=== PATIENT | female | born 1985 | race Caucasian/White ===

== ENCOUNTER → 2023-05-10 10:06 | Outpatient (BNVA) | payer MEDICAID, SELFPAY | PROVIDERS: PCP Family Medicine; Visit Provider Family Medicine | DX: M79.7 Fibromyalgia (principal); M32.9 Systemic lupus erythematosus, unspecified; B35.3 Tinea pedis; K21.9 Gastro-esophageal reflux disease without esophagitis; F17.200 Nicotine dependence, unspecified, uncomplicated | CPT/HCPCS: 80053; 81000; 82306; 83036; 83735; 84443; 85025; 85651; 86038; 86141; 86200 ==

== ENCOUNTER → 2023-08-20 15:56 | Outpatient (BNVA) | payer MEDICAID, SELFPAY | PROVIDERS: PCP Family Medicine; Visit Provider Family Medicine | DX: Z01.818 Encounter for other preprocedural examination (principal) | CPT/HCPCS: 81000 ==

== ENCOUNTER 2023-09-09 14:27 | Outpatient (CLI) | payer MEDICAID, SELFPAY ==
--- NOTE | 2023-09-09 14:31 | XRR_ITS ---
PROCEDURE INFORMATION: Exam: XR Lumbosacral Spine Exam date and time: 09/09/2023 2:34 PM Age: 38 years old Clinical indication: Low back pain; Additional info: Worsening back pain, no red flags TECHNIQUE: Imaging protocol: Radiologic exam of the lumbosacral spine. Views: 2 or 3 views. COMPARISON: No relevant prior studies available. FINDINGS: Bones/joints: Slight L5-S1 disc space narrowing without spurring. Soft tissues: Unremarkable. Organs: cholecystectomy. XR/XR lumbar spine 2-3V* [id number] IMPRESSION: No significant abnormality. No acute findings.
== END 2023-09-09 14:28 | disposition home or self-care (01) ==
LOC: RAD 14:28
PROVIDERS: PCP Family Medicine; Visit Provider Family Medicine
DX: M54.31 Sciatica, right side (principal)
CPT/HCPCS: 72100

== ENCOUNTER 2023-09-18 07:34 | Outpatient (CLI) | payer MEDICAID, SELFPAY ==
--- NOTE | 2023-09-18 07:45 | US_ITS ---
WS: [id number] US pelv w/transvag [id number] HISTORY: pelvic pain; s/p hyst, has ovaries COMPARISON: None available. Status post remote hysterectomy. No midline mass or fluid identified. Right ovary: 1.7 cm x 0.8 cm x 1.6 cm. Normal size and vascularity, no cystic or solid masses. Left ovary: 2.3 cm x 1.8 cm x 2.8 cm. Normal size and vascularity, no cystic or solid masses. Small f luid collection in the LEFT adnexa adjacent to the ovary may be a peritoneal inclusion cyst. This col lection measures 1.8 x 0.7 x 1.3 cm. No free fluid in the cul-de-sac. IMPRESSION: 1. Status post hysterectomy. No midline mass. 2. Negative ovaries. 3. Very small amount of fluid in the LEFT adnexa. May be a peritoneal inclusion cyst.
== END 2023-09-18 07:35 | disposition home or self-care (01) ==
LOC: RAD 07:35
PROVIDERS: PCP Family Medicine; Visit Provider Family Medicine
DX: R10.2 Pelvic and perineal pain (principal); Z90.710 Acquired absence of both cervix and uterus
CPT/HCPCS: 76830; 76856

== ENCOUNTER 2023-11-28 05:47 | Day surgery (SDC) | payer MEDICAID, SELFPAY ==
[2023-11-28] VITALS (11 sets, daily range): BP systolic 102–122; BP diastolic 65–82; PULSE 70–87; RESP 12–18; TEMP 36.2–36.8; O2SAT 94–100; BMI 31.8
--- NOTE | 2023-11-28 01:05 | W.PM.OPSFHP ---
Same Day Surgery H&P Indication for Procedure/HPI DATE OF PROCEDURE: November 28, 2023 CHIEF COMPLAINT/INDICATIONFOR SURGICAL PROCEDURE: chronic pelvic pain pelvic or peritoneal cyst PREOP DIAGNOSIS: chronic pelvic pain; pelvic or peritoneal cyst PLANNED PROCEDURE: Operation Date: 11/28/23 07:00 Proposed Procedures p Laparoscopy 51020, Possible lysis of adhesions 67189, , possible cystectomy 10861, possible cyst aspiration 66733 Laparoscopy 24379, Possible lysis of adhesions 52101, , possible cystectomy 22845, possible cyst aspiration 16880, K66.8,,R10.2(Not Applicable) - Alfredo Fisher MD s Poss Lysis Of Adhesions(Not Applicable) - Alfredo Fisher MD s Poss Laparoscopic Ovarian Cystectomy(Not Applicable) - Alfredo Fisher MD 38 y.o. A1 h/o hysterectomy in 2018 for endometriosis done in [place], [place] c/o 3-4 month history of lower back pain, radiating across to pelvic area pain constant, hurts when moving + painful intercourse Now pain mostly in pelvic region No pain when sleeping or sitting, only when moving No dysuria Eating well Normal BMs No bladder complaints Had pelvic sono done September 18, 2023 Normal ovaries 1.8 cm fluid collection in left adnexa Now scheduled for laparoscopy, possible laparoscopic lysis of adhesions, possible cystectomy, possible drainage of cyst Medications/Allergies* Allergies/Adverse Reactions Allergy/AdvReac Type Severity Reaction Status Date / Time codeine Allergy hives Verified 11/27/23 12:20 morphine Allergy nausea Verified 11/27/23 12:20 Sulfa (Sulfonamide Allergy hives Verified 11/27/23 12:20 Antibiotics) amoxicillin Allergy hives Uncoded 11/27/23 12:20 cephlex Allergy hives Uncoded 11/27/23 12:20 Pertinent History/Comorbid Conditions* Medical History (Updated 09/30/23 @ 03:02 by Alfredo Fisher MD) Smoker GERD (gastroesophageal reflux disease) Hiatal hernia Fibromyalgia Surgical History (Updated 05/10/23 @ 09:33 by Emilie Sullivan MD) History of hysterectomy still has both ovaries History of tubal ligation History of laparoscopic cholecystectomy Family History (Updated 05/10/23 @ 09:34 by Emilie Sullivan MD) Diabetes Father Grandfather Chronic kidney disease (CKD) Grandfather Lung disease Mother Cancer Grandmother pancreatic Hypertension Father Pertinent Exam Findings alert, oriented x 3, clear to auscultation bilaterally and regular rate & rhythm Pertinent Data pelvic sono done September 18, 2023 Normal ovaries 1.8 cm fluid collection in left adnexa Recommendations Surgery/Procedure today Coding Level of Care Code Acute Code for Chg Fwd Time Spent (min) 20
[2023-11-28] MEDS: sodium chloride 0.9% 1,000 ML 30 ML IV (06:12)
--- NOTE | 2023-11-28 06:44 | ANES.PREANE2 ---
Pre-Anesthetic Assessment Height/Weight: Height 1.57 m Weight 78.925 kg Temp Pulse Resp BP Pulse Ox O2 Del Method 97.2 F L 75 17 117/68 99 Room Air 11/28/23 06:02 11/28/23 06:02 11/28/23 06:02 11/28/23 06:02 11/28/23 06:02 11/28/23 06:03 Preop Diagnosis: pelvic pain; peritoneal cyst Operation Date: 11/28/23 07:00 Proposed Procedures p Laparoscopy 32241, Possible lysis of adhesions 60088, , possible cystectomy 45261, possible cyst aspiration 66535 Laparoscopy 46855, Possible lysis of adhesions 87760, , possible cystectomy 45752, possible cyst aspiration 02597, K66.8,,R10.2(Not Applicable) - Alfredo Fisher MD s Poss Lysis Of Adhesions(Not Applicable) - Alfredo Fisher MD s Poss Laparoscopic Ovarian Cystectomy(Not Applicable) - Alfredo Fisher MD Familial anesthetic complications: None Was Beta Leny taken within 24 hours: N/A Was Clonidine taken within 24 hours: N/A Last intake: Intake Last Liquid Date 11/27/23 Last Liquid Time 21:00 Last Solid Date 11/27/23 Last Solid Time 18:30 Social No alcohol and No tobacco Exam alert, oriented x 3, clear to auscultation bilaterally and regular rate & rhythm Airway Mallampati: Class II Dentition: chipped GI Gastroesophageal Reflux Disease and Hiatal Hernia Musc/skel Fibromyalgia Lupus Anesthetic Plan ASA status: 2 Anesthesia: General Risk of > 500 ml blood loss (7ml/kg in children): No Medications/Allergies Home Medications Medication Instructions Recorded Confirmed Last Taken Type naproxen 500 mg tablet 500 mg PO BID PRN pain #60 tabs 05/10/23 11/28/23 10/29/23 Rx omeprazole 20 mg capsule,delayed 20 mg PO DAILY #90 caps 05/10/23 11/28/23 10/29/23 Rx release hydrocodone 5 mg-acetaminophen 325 1 tab PO TID PRN pain 7 days #21 09/09/23 11/28/23 10/29/23 Rx mg tablet tabs Allergies Allergy/AdvReac Type Severity Reaction Status Date / Time codeine Allergy hives Verified 11/27/23 12:20 morphine Allergy nausea Verified 11/27/23 12:20 Sulfa (Sulfonamide Allergy hives Verified 11/27/23 12:20 Antibiotics) amoxicillin Allergy hives Uncoded 11/27/23 12:20 cephlex Allergy hives Uncoded 11/27/23 12:20 Current Medications Generic Name Dose Route Start Last Admin Trade Name Freq PRN Reason Stop Dose Admin Sodium Chloride 1,000 mls @ 30 mls/hr 11/28/23 06:00 11/28/23 06:27 Sodium Chloride 0.9% IV 11/29/23 05:59 30 mls/hr .Q24H EFE Infusion PFSH Anesthesia Medical History (Updated 09/30/23 @ 03:02 by Alfredo Fisher MD) Smoker GERD (gastroesophageal reflux disease) Hiatal hernia Fibromyalgia Surgical History (Updated 05/10/23 @ 09:33 by Emilie Sullivan MD) History of hysterectomy still has both ovaries History of tubal ligation History of laparoscopic cholecystectomy Family History (Updated 05/10/23 @ 09:34 by Emilie Sullivan MD) Father Hypertension Diabetes Mother Lung disease Grandmother Cancer pancreatic Grandfather Chronic kidney disease (CKD) Diabetes Data Anesthesia Cardiac Studies: No Data to Display
--- NOTE | 2023-11-28 06:56 | P.HPUD_ITS ---
Surgery/Procedure H&P Update DATE OF PROCEDURE: November 28, 2023 DATE H&P PERFORMED: 11/28/23 H&P UPDATE INFORMATION: I have reviewed H&P completed within last 30 days, I have examined patient prior to procedure and No changes to prior documentation PREOP DIAGNOSIS: pelvic pain; peritoneal cyst PLANNED PROCEDURE: Operation Date: 11/28/23 07:00 Proposed Procedures p Laparoscopy 06640, Possible lysis of adhesions 87739, , possible cystectomy 18900, possible cyst aspiration 46619 Laparoscopy 26849, Possible lysis of adhesions 02534, , possible cystectomy 36474, possible cyst aspiration 40702, K66.8,,R10.2(Not Applicable) - Alfredo Fisher MD s Poss Lysis Of Adhesions(Not Applicable) - Alfredo Fisher MD s Poss Laparoscopic Ovarian Cystectomy(Not Applicable) - Alfredo Fisher MD
--- NOTE | 2023-11-28 06:56 | W.PM.OPSUD ---
Surgery/Procedure H&P Update DATE OF PROCEDURE: November 28, 2023 DATE H&P PERFORMED: 11/28/23 H&P UPDATE INFORMATION: I have reviewed H&P completed within last 30 days, I have examined patient prior to procedure and No changes to prior documentation PREOP DIAGNOSIS: pelvic pain; peritoneal cyst PLANNED PROCEDURE: Operation Date: 11/28/23 07:00 Proposed Procedures p Laparoscopy 69049, Possible lysis of adhesions 88689, , possible cystectomy 86113, possible cyst aspiration 21719 Laparoscopy 49122, Possible lysis of adhesions 01878, , possible cystectomy 40764, possible cyst aspiration 61008, K66.8,,R10.2(Not Applicable) - Alfredo Fisher MD s Poss Lysis Of Adhesions(Not Applicable) - Alfredo Fisher MD s Poss Laparoscopic Ovarian Cystectomy(Not Applicable) - Alfredo Fisher MD
[2023-11-28] MEDS: fentaNYL 50 mcg/mL INJ 2mL IVP (08:11)
--- NOTE | 2023-11-28 09:10 | PM.OP ---
Operative Report Date of procedure: November 28, 2023 Pre-op diagnosis: chronic pelvic pain Post-op diagnosis: normal pelvis Post-op findings: uterus is absent normal ovaries remanants of bilateral fallopian tubes, normal normal pelvic floor and side-luther no adhesions, cysts no evidence of endometriosis Procedure done: laparoscopy Implants: none Specimens removed/disposition: none Surgeon: Alfredo Fisher MD Anesthesia: General Estimated blood loss (mL): 5 Complications: none Condition: stable Disposition: PACU Brief History: 38 y.o. with h/o hysterectomy c/o chronic pelvic pain Procedure: Informed consent obtained. The patient was taken to the OR and placed supine on the table. General endotracheal anesthesia was given. The patient was then placed in dorsolithotomy position. The abdomen and perineum were prepped and draped in usual fashion. A fowler catheter was placed. A 5 mm subumbilical skin incision was made. A laparoscopic trocar with sheath was inserted into the peritoneal cavity under direct vision with the laparoscope. Pneumoperitoneum was achieved. One separate 5 mm incisions were made in left mid-abdominal quadrant under direct visualization to accommodate additional trocar and sheath. The pelvis was explored with the laparoscope. The uterus is absent. Normal ovaries were seen. Fallopian tube fragments were seen. No adhesions were seen. Normal pelvic floor and pelvic side-luther were visualized. No white or red lesions, fenestrations, or vascular abnormalities were seen. There were no stellate lesions, cysts or fibrosis/adhesions seen. The liver edge was visualized and was normal. All instruments were then removed from the abdominal cavity after the pneumoperitoneum was allowed to escape. The skin incisions were closed with 4-O monocryl. Dermabond was applied. The fowler catheter was removed. The patient was then awakened and taken to the recovery room in good condition. Postop condition stable. EBL 5 cc. There were no complications.
[2023-11-28] MEDS: HYDROcodone-acetaminophen 5-325 mg Tablet 1 TAB PO (09:11)
--- NOTE | 2023-11-28 09:15 | ANE.PACU2 ---
Inpatient post-anesthesia follow up: Airway intact: Yes Vital signs: Temperature 97.6 F Pulse Rate 70 Respiratory Rate 18 Blood Pressure 106/65 Pulse Oximetry 97 Oxygen Delivery Me thod Room Air Oxygen Flow Rate Fraction of Inspir ed Oxygen Hydration adequate: Yes Nausea and vomiting: No Pain level: 1 Mental status: Baseline
== END 2023-11-28 09:18 | disposition home or self-care (01) ==
PROVIDERS: PCP Family Medicine; Visit Provider Obstetrics & Gynecology
PROC: (CPT 49320; principal; 2023-11-28 07:00)
DX: R10.2 Pelvic and perineal pain (principal); G89.29 Other chronic pain; F17.200 Nicotine dependence, unspecified, uncomplicated; K21.9 Gastro-esophageal reflux disease without esophagitis; M79.7 Fibromyalgia
CPT/HCPCS: 49320; J1100; J2250; J2405; J2704; J2710; J3010; J3490; J7030

== ENCOUNTER → 2024-02-18 11:49 | Outpatient (BNVA) | payer MEDICAID, SELFPAY | PROVIDERS: PCP Family Medicine; Visit Provider Family Medicine | DX: R30.0 Dysuria (principal) | CPT/HCPCS: 81000 ==

== ENCOUNTER → 2024-10-28 11:53 | Outpatient (BNVA) | payer MEDICAID, SELFPAY | PROVIDERS: PCP Family Medicine; Visit Provider Family Medicine | DX: J02.9 Acute pharyngitis, unspecified (principal) | CPT/HCPCS: 87400; 87426; 87880 ==

== ENCOUNTER → 2025-02-05 08:28 | Outpatient (BNVA) | payer MEDICAID, SELFPAY | PROVIDERS: PCP Family Medicine; Visit Provider Family Medicine | DX: R30.0 Dysuria (principal) | CPT/HCPCS: 81000 ==

== ENCOUNTER 2025-04-05 08:00 | Emergency (ER) | payer MEDICAID, SELFPAY ==
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
--- NOTE | 2025-04-05 08:05 | XRR_ITS ---
PROCEDURE INFORMATION: Exam: XR Chest Exam date and time: 04/05/2025 8:21 AM Age: 39 years old Clinical indication: Cough and dyspnea; Additional info: Dyspnea/cough TECHNIQUE: Imaging protocol: Radiologic exam of the chest. Views: 1 view. COMPARISON: No relevant prior studies available. FINDINGS: Lungs: Unremarkable. No consolidation. Pleural spaces: Unremarkable. No pleural effusion. No pneumothorax. Heart/Mediastinum: Unremarkable. No cardiomegaly. Bones/joints: Unremarkable. XR/XR chest 1V portable [id number] IMPRESSION: No acute findings.
[2025-04-05 08:08] VITALS: BP 154/78; PULSE 80; RESP 16; TEMP 36.5; O2SAT 99
--- NOTE | 2025-04-05 08:16 | ECG_ITS ---
[facility] Test Date: 2025-04-05 Pat Name: Nirmala Chandler Department: Room: Gender: Female [employer]: : 1985 Requested By: Chuck Valle Order Number: [id number] Erick MD: Tomas Santos M.D. Measurements Intervals [place] Rate: 87 P: 62 ME: 137 QRS: 54 QRSD: 85 T: 44 QT: 358 QTc: 431 Interpretive Statements SINUS RHYTHM No previous ECG available for comparison Electronically Signed On 04-08-2025 09:09:40 CDT by Tomas Santos M.D. [email or web address]
--- NOTE | 2025-04-05 08:33 | ED_ITS ---
HPI - Chest Pain 2 General: Chief Complaint: Chest Pain Stated Complaint: Light headed,fever, cp,sob Time Seen by Provider: 04/05/25 08:04 History of Present Illness: 39-year-old female presents emergency ro om lightheadedness dizziness complains of chest pain and shortness of breath she is intermittently had these symptoms before over a week along with dizziness and nausea she was seen for mild heatstroke and advised to increase her fluid intake. No history of arrhythmia or previous DE. Patient. She has a history of fibromyalgia. No shortness of breath no abdominal pain no dysuria urgency or frequency no productive cough. Associated symptoms: Deny abdominal pain, dyspnea or fever(s) Related Data Previous Rx's ?Medication ?Instructions ?Recorded promethazine 25 mg tablet 25 mg PO Q6H PRN nausea and 04/05/25 vomiting #20 tabs Allergies Allergy/AdvReac Type Severity Reaction Status Date / Time codeine Allergy hives Verified 02/05/25 08:37 morphine Allergy nausea Verified 02/05/25 08:37 Sulfa (Sulfonamide Allergy hives Verified 02/05/25 08:37 Antibiotics) amoxicillin Allergy hives Uncoded 02/05/25 08:37 cephlex Allergy hives Uncoded 02/05/25 08:37 Review of Systems 2 Const: Denies: fever(s) or chills Card: Denies: chest pain Resp: Denies: dyspnea GI: Denies: abdominal pain : Denies: dysuria, urinary frequency or urinary urgency Musc: Denies: neck pain or back pain Skin/Breast: Denies: rash PFSH ED 2 PFSH: Medical History Smoker GERD (gastroesophageal reflux disease) Hiatal hernia Fibromyalgia Surgical History History of hysterectomy still has both ovaries History of tubal ligation History of laparoscopic cholecystectomy Family History Father Hypertension Diabetes Mother Lung disease Grandmother Cancer pancreatic Grandfather Chronic kidney disease (CKD) Diabetes Social History Smoking and tobacco/nicotine status: never used tobacco/nicotine Physical Exam 2 Const: GENERAL APPEARANCE: cooperative ORIENTATION/CONSCIOUSNESS: Yes awake, Yes oriented to person, Yes oriented to place and Yes oriented to time HENMT: COMMON NORMALS: normocephalic, atraumatic and hearing grossly normal bilaterally HEAD & SCALP: normocephalic and atraumatic Resp: COMMON NORMALS: normal respiratory effort, No retractions, No use of accessory muscles and clear to auscultation bilaterally AUSCULTATION: clear to auscultation bilaterally Cardio: COMMON NORMALS: regular rate, regular rhythm and No murmurs present (Cardio) RATE: regular rate RHYTHM: regular rhythm GI: COMMON NORMALS: Soft to palpation and No hepatosplenomegaly present A USCULTATION: Yes normoactive bowel sounds PALPATION: Yes Soft to palpation, No Tenderness to palpation present (GI), No Guarding due to palpation present (GI) and Yes No hepatosplenomegaly present Extremity: COMMON NORMALS: normal to inspection, capillary refill normal, no clubbing, cyanosis or edema, no calf tenderness and no pedal edema Neuro: SENSORIUM/ORIENTATION: Yes oriented to person, Yes oriented to place and Yes oriented to time Skin: COMMON NORMALS: no rashes or lesions noted GENERAL SKIN EXAM: no rashes or lesions noted Course 2 Vital Signs: Vital signs: Vital Signs Temperature 97.7 F 04/05/25 08:08 Pulse Rate 74 04/05/25 11:54 Respiratory Rate 16 04/05/25 08:08 Blood Pressure 113/60 04/05/25 11:54 Pulse Oximetry 96 04/05/25 11:54 Oxygen Delivery Me thod Room Air 04/05/25 10:00 MDM - Chest Pain Medical Decision Making Labs and imaging reviewed. Normal no acute ST changes. Cardiac enzymes negative white count normal chest x-ray normal reviewed findings with patient discharged home follow-up primary care suspect much of her symptoms may be due to her history of fibromyalgia. Return if she has further problems otherwise follow-up with primary care Medical Records I reviewed the patient's medical records. Lab Data I reviewed the patient's lab results. 04/05/25 08:22 04/05/25 08:22 Radiology Impressions Chest X-Ray 04/05/25 08:05 IMPRESSION: No acute findings. Laboratory Results WBC 10.26 10^3/uL (3.29-11.43) 04/05/25 08:22 RBC 5.00 10^6/uL (3.85-5.65) 04/05/25 08:22 Hgb 15.40 g/dL (11.27-16.99) 04/05/25 08:22 Hct 44.9 % (36-47) 04/05/25 08:22 MCV 89.8 fl (85-98) 04/05/25 08:22 MCH 30.8 pg (27-33) 04/05/25 08:22 MCHC 34.3 g/dL (30-55) 04/05/25 08:22 RDW 12.7 % (12.1-15.1) 04/05/25 08:22 Plt Count 420 10^3/cmm (157-399) H 04/05/25 08:22 MPV 9.3 fL (7.4-10.4) 04/05/25 08:22 Neut % (Auto) 65.1 % 04/05/25 08:22 Lymph % (Auto) 25.3 % 04/05/25 08:22 Emmons % (Auto) 5.1 % 04/05/25 08:22 Eos % (Auto) 3.2 % 04/05/25 08:22 Baso % (Auto) 0.8 % 04/05/25 08:22 Neut # (Auto) 6.68 10^3/uL (1.8-7.7) 04/05/25 08:22 Lymph # (Auto) 2.6 10^3/uL (0.8-4.8) 04/05/25 08:22 Emmons # (Auto) 0.5 10^3/uL (0.2-0.9) 04/05/25 08:22 Eos # (Auto) 0.3 10^3/uL (0.0-0.8) 04/05/25 08:22 Baso # (Auto) 0.1 10^3/uL (0.0-0.1) 04/05/25 08:22 Nucleated RBC % (auto) 0 % 04/05/25 08:22 Nucleated RBCs # 0.0 /100WBC 04/05/25 08:22 Sodium 137 mmol/L (136-145) 04/05/25 08:22 Potassium 4.0 mmol/L (3.5-5.1) 04/05/25 08:22 Chloride 101 mmol/L (98-107) 04/05/25 08:22 Carbon Dioxide 23 mmol/L (22-29) 04/05/25 08:22 Anion Gap 17.0 (5-19) 04/05/25 08:22 BUN 13 mg/dL (6-20) 04/05/25 08:22 Creatinine 0.6 mg/dL (0.5-0.9) 04/05/25 08:22 GFR Calculation 111.9 mL/min (90-130) 04/05/25 08:22 Glucose 105 mg/dL (65-115) 04/05/25 08:22 Calculated Osmolality 284 mOsm/kg (285-295) L 04/05/25 08:22 Calcium 9.5 mg/dL (8.5-10.5) 04/05/25 08:22 Total Bilirubin 0.2 mg/dL (0.15-1.2) 04/05/25 08:22 AST 13 U/L (0-32) 04/05/25 08:22 ALT 19 U/L (0-33) 04/05/25 08:22 Alkaline Phosphatase 69 U/L (35-105) 04/05/25 08:22 Troponin T Baseline < 6 ng/L (0-10) 04/05/25 08:22 Troponin T 120 Minute < 6.0 ng/L (0-10) 04/05/25 10:27 Delta Troponin T 0 ABS# (0-10) 04/05/25 10:27 Total Protein 7.2 g/dL (6.6-8.7) 04/05/25 08:22 Albumin 4.3 g/dL (3.5-5.2) 04/05/25 08:22 Globulin 2.9 g/dL (1.3-4.6) 04/05/25 08:22 Urine Color Yellow (Yellow) 04/05/25 08:35 Urine Appearance Clear (CLEAR) 04/05/25 08:35 Urine pH 7.0 (5-7) 04/05/25 08:35 Ur Specific [place] 1.014 (1.005-1.030) 04/05/25 08:35 Urine Protein Negative (Negative) 04/05/25 08:35 Urine Glucose (UA) Negative (Normal) 04/05/25 08:35 Urine Ketones Negative (Negative) 04/05/25 08:35 Urine Blood Negative (Negative) 04/05/25 08:35 Urine Nitrate Negative (Negative) 04/05/25 08:35 Urine Bilirubin Negative (Negative) 04/05/25 08:35 Urine Urobilinogen 0.2 mg/dL (Negative) 04/05/25 08:35 Ur Leukocyte Esterase Negative (Negative) 04/05/25 08:35 Urine RBC 6-10 /hpf (0-2) 04/05/25 08:35 Urine WBC 0-5 /hpf (0-5) 04/05/25 08:35 Ur Squamous Epith Cells 0-5 /hpf (0-5) 04/05/25 08:35 Amorphous Sediment Not Reportable 04/05/25 08:35 Urine Bacteria None seen /hpf (NONE) 04/05/25 08:35 Hyaline Casts 0-4 /lpf H 04/05/25 08:35 Influenza A (PCR) Negative (Negative) 04/05/25 08:34 Influenza Type B (PCR) Negative (Negative) 04/05/25 08:34 RSV (PCR) Negative (Negative) 04/05/25 08:34 SARS-CoV-2 (PCR) Negative (Negative) 04/05/25 08:34 All radiology interpretation(s) finalized by discharge EKG Data EKG 1: Interpretation: EKG 04/05/2025 816 normal sinus rhythm rate of 87 [place] normal 137 QTc [address] changes noted. No previous EKGs for comparison Discharge Plan Discharge Patient Disposition: Home Clinical Impression: Atypical chest pain Condition: Stable Prescriptions: New promethazine 25 mg tablet 25 mg PO Q6H PRN (Reason: nausea and vomiting) Qty: 20 0RF Discharge Orders: Discharge ED (Routine); Ordered 04/05/25 Ordered By: Chuck Guthrie Referrals: Emilie Sullivan MD [Primary Care Provider, Family Practice] Discharge Diet: Usual diet Discharge Activity: Increase activity as tolerated Patient Instructions: Opioid Safety, Pain Management, Patient Portal & Benny Instructions Activity Restrictions/Additional Instructions: Thank you for choosing [facility] for your healthcare needs today. It is very important that you follow up as instructed or that you return to the Emergency Department should you have concerns or if your condition changes or worsens in any way. You were seen in the emergency room with complaint of generally not feeling well with chest pain nausea vomiting. Your laboratory tests are unremarkable EKG does not show any acute change your cardiac enzymes are also normal. There is no sign of any acute emergent condition at this time. You were given promethazine to use as needed. Follow-up with your primary care doctor if you have persistent symptoms. Print Language: Nigerien Coding Level of Care Code ED [place] Utility Worker for Adam Fleming
[2025-04-05 08:35] LABS: Basophils # 0.1 10^3/uL (0.0-0.1); Basophils % 0.8 %; Eosinophils # 0.3 10^3/uL (0.0-0.8); Eosinophils % 3.2 %; Hematocrit 44.9 % (36-47); Lymphocytes # 2.6 10^3/uL (0.8-4.8); Lymphocytes % 25.3 %; Mean Corpuscular HGB Conc 34.3 g/dL (30-55); Mean Corpuscular Hemoglobin 30.8 pg (27-33); Mean Corpuscular Volume 89.8 fl (85-98); Mean Platelet Volume 9.3 fL (7.4-10.4); Monocytes # 0.5 10^3/uL (0.2-0.9); Monocytes % 5.1 %; Neutrophils # 6.68 10^3/uL (1.8-7.7); Neutrophils % 65.1 %; Nucleated Red Blood Cells % 0 %; Platelet Count 420 10^3/cmm (157-399); Red Cell Distribution Width 12.7 % (12.1-15.1); White Blood Count 10.26 10^3/uL (3.29-11.43)
[2025-04-05 09:01] LABS: Bilirubin Urine Negative (Negative); Blood Urine Negative (Negative); Glucose Urine UA Negative (Normal); Ketones Urine Negative (Negative); Leukocyte Esterase Urine Negative (Negative); Nitrate Urine Negative (Negative); Protein Urine Negative (Negative); Specific Gravity, Urine 1.014 (1.005-1.030); Urine Appearance Clear (CLEAR); Urine Color Yellow (Yellow); Urobilinogen Urine 0.2 mg/dL (Negative)
[2025-04-05 09:01] LABS: Alanine Aminotransferase 19 U/L (0-33); Albumin Level 4.3 g/dL (3.5-5.2); Alkaline Phosphatase 69 U/L (35-105); Aspartate Amino Transferase 13 U/L (0-32); Blood Urea Nitrogen 13 mg/dL (6-20); Calcium 9.5 mg/dL (8.5-10.5); Carbon Dioxide 23 mmol/L (22-29); Chloride 101 mmol/L (98-107); Globulin 2.9 g/dL (1.3-4.6); Glomerular Filtration Rate 111.9 mL/min (90-130); Glucose 105 mg/dL (65-115); Osmolality Calculated 284 mOsm/kg (285-295); Sodium 137 mmol/L (136-145); Total Bilirubin 0.2 mg/dL (0.15-1.2); Total Protein 7.2 g/dL (6.6-8.7)
[2025-04-05 09:06] LABS: Add Urine Microscopic? YES; Bacteria Urine None Seen /hpf; Hyaline Casts Urine 0-4 /lpf; Squamous Epithelial Cell Urine 0-5 /hpf (0-5); WBC Urine 0-5 /hpf (0-5)
[2025-04-05 09:30] VITALS: BP 119/71; PULSE 65; O2SAT 97
[2025-04-05 09:37] LABS: Influenza A NEGATIVE (Negative); Influenza B NEGATIVE (Negative); Respiratory Syncytial Virus Ce NEGATIVE (Negative); SARS-CoV-2 PCR NEGATIVE (Negative)
[2025-04-05 10:00] VITALS: BP 111/58; PULSE 70; O2SAT 96
--- NOTE | 2025-04-05 10:09 | ECG_ITS ---
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 Measurements Intervals [place] Rate: 65 P: 58 OK: 137 QRS: 44 QRSD: 85 T: 38 QT: 395 QTc: 412 Interpretive Statements SINUS RHYTHM Compared to ECG 04/05/2025 08:16:12 No significant changes Electronically Signed On 04-08-2025 09:09:09 CDT by Tomas Santos M.D. [email or web address]
[2025-04-05 10:49] LABS: Troponin(5th) Baseline < 6 ng/L (0-10)
[2025-04-05 10:52] LABS: Troponin 5 2HR < 6.0 ng/L (0-10); Troponin 5 2HR Delta 0 ABS# (0-10)
[2025-04-05 11:54] VITALS: BP 113/60; PULSE 74; O2SAT 96
== END 2025-04-05 11:56 | disposition home or self-care (01) ==
PROVIDERS: Emergency Provider Family Medicine; PCP Family Medicine
DX: R07.89 Other chest pain (principal); Z11.52 Encounter for screening for COVID-19
CPT/HCPCS: 36415; 71045; 80053; 81001; 84484; 85025; 87040; 87637; 93005; 99285